=== PATIENT | female | born 1970 | race Caucasian/White ===

== ENCOUNTER 2019-02-06 15:30 | Emergency (ER) | payer BC, OTHER ==
[2019-02-06] MEDS ORDERED: Metoclopramide IV* 5 MG/ML 2 ML VIAL IV ONE (16:18)
[2019-02-06] MEDS ORDERED: NS 0.9% 1000 ML** 1,000 ML IV ONE (16:18)
[2019-02-06] MEDS ORDERED: Morphine 10 MG/ML VIAL (1 ml) IV ONE ×2 (16:18→20:54)
[2019-02-06] MEDS ORDERED: diPHENhydraMINE IV* 50 MG/ML 1 ml VIAL (BENADRYL) IV ONE ×2 (16:20→19:23)
[2019-02-06 16:54] LABS: ABS Basophils 0 10^3/ul (0-0.2); ABS Eosinophils 0.2 10^3/ul (0-0.6); ABS Lymphocytes 1.1 10^3/ul (1.0-4.8); ABS Monocytes 0.5 10^3/ul (0-0.8); ABS Neutrophils 1.7 10^3/ul (1.5-7.7); ABS Nucleated RBC 0 10^3/ul; Eosinophil % 5.3 %; Hematocrit 42 % (33-41); Hemoglobin 14.2 g/dL (12.0-16.0); Lymphocyte % 32.2 %; Mean Corpuscular HGB Conc 34 g/dL (31-36); Mean Corpuscular Hemoglobin 30 pg (27-31); Mean Corpuscular Volume 89 fL (80-97); Mean Platelet Volume 8.1 fL (7.4-10.4); Nucleated Red Blood Cells % 0; Platelet Count 152 10^3/uL (150-450); Red Blood Count 4.71 10^6 /uL (3.70-4.87); Red Cell Distribution Width 14 % (10.5-15); White Blood Count 3.5 10^3/uL (3.5-10.8)
--- NOTE | 2019-02-06 17:01 | ED ---
Syncope/Near Syncope - HPI Summary HPI Summary: Patient complains of syncope 2 in the past 10 days with the last one week ago, constant headache for the past 4 days with associated blurred vision in left eye , nausea and sensitivity to sound. One episode of syncope unwitnessed, patient states she just woke up on the floor. Second episode of syncope was witnessed by , states episode lasted seconds, patient was immediately alert and oriented when she returned to normal mental status. Patient denies any symptoms prior to or following episodes of syncope. Both episodes of syncope occurred when patient change from sitting position to standing position. History of asymptomatic low blood pressure with SBP averaging between 80 and 90. History of orthostatic hypotension. Hypotension has become more symptomatic since gastric sleeve surgery. Patient states she hydrates very religiously. History of CHF with pacemaker/defib. Headache described as constant, /, no relief with Percocet, Tylenol or ibuprofen. Denies unilateral weakness, facial droop, slurred speech, fever, neck stiffness, cough , nasal congestion, sore throat, CP, SOB, V/D, abdominal pain, change in urine, change in BM. Medical history is HTN, hypothyroid, CK D, CHF with pacemaker and defibrillator. No anti-coag. Patient also admits to medication changes 2 weeks ago to include stopping Aldactone and Lasix, decreasing Coreg from 50 minutes twice a day to 25 minutes twice a day and decreasing entresto (ARB) due to weight loss subsequent to gastric sleeve surgery on 01/06/19. - History Of Current Complaint Chief Complaint: EDHeadache Time Seen by Provider: 02/06/19 15:53 Hx Obtained From: Patient, Family/Minister Onset/Duration: Gradual Onset, Lasting Days Timing: Constant Context: Unwitnessed, Witnessed Associated Head Trauma: No Aggravating Factor(s): Position Change Alleviating Factor(s): Spontaneous Resolution Associated Signs And Symptoms: Headache - Risk Factors Cardiac Risk Factors: Hypertension, CHF - Allergies/Home Medications Allergies/Adverse Reactions: Allergies Allergy/AdvReac Type Severity Reaction Status Date / Time SUBHA Inhibitors Allergy Rash Verified 02/06/19 15:36 acetaminophen [From [place]] Allergy Itching Verified 02/06/19 15:36 cefazolin [From [facility]] Allergy Itching Verified 02/06/19 15:36 hydrocodone [From [place]] Allergy Itching Verified 02/06/19 15:36 Iodinated Contrast- Oral and Allergy Hives Verified 02/06/19 15:36 IV Dye latex Allergy Rash Verified 02/06/19 15:36 vancomycin Allergy See Comment Verified 02/06/19 15:36 PMH/Surg Hx/FS Hx/Imm Hx Endocrine/Hematology History: Reports: Hx Thyroid Disease - HYPOTHYROIDISM Cardiovascular History: Reports: Hx Pacemaker/ICD - [employer], Other Cardiovascular Problems/Disorders - NONISCHEMIC DILATED CARDIOMYOPATHY, WITH VTACH GI History: Reports: Hx Ulcer - PEPTIC ULCER, Other GI Disorders - HX GASTRITIS RELATED TO MEDICATIONS, TAKING OMEPRAZOLE History: Reports: Hx Kidney Stones - 2009, Other Problems/Disorders - HX OF INCONTINENCE, BLADDER REPAIR IN 2008 Sensory History: Reports: Hx Contacts or Glasses - GLASSES FOR DISTANCE ONLY Denies: Hx Hearing Aid Opthamlomology History: Reports: Hx Contacts or Glasses - GLASSES FOR DISTANCE ONLY EENT History: Denies: Hx Deafness Neurological History: Denies: Hx Dementia Psychiatric History: Reports: Hx Depression - CONTROL WITH MEDS - Cancer History Hx Chemotherapy: No Hx Radiation Therapy: No - Surgical History Surgery Procedure, Year, and Place: 2008 HYSTERECTOMY WITH BLADDER REPAIR, HARI JONES. 2009 TONSILLECTOMY, [facility] [place]. 2009 RIGHT KIDNEY STONE REMOVAL, LINDA ARGUELLES. 1994 LAPAROSCOPIC CHOLECYSTECTOMY, HARI. 2006 ICD/PACEMAKER PLACEMENT , HARI JONES. 2013 ICD/PACEMAKER GENERATOR CHANGE, HARI. 2015 ICD POCKET AND SCAR REVISION, KATERINE. 2016 cervical fusion, ACHILLES TENDON SURGERY Hx Anesthesia Reactions: No - Immunization History Date of Influenza Vaccine: UTD Infectious Disease History: No Infectious Disease History: Denies: Traveled Outside the [place] in Last 30 Days - Family History Known Family History: Positive: Cardiac Disease - Social History Alcohol Use: Occasionally Hx Substance Use: No Substance Use Type: Reports: None Hx Tobacco Use: No Smoking Status (MU): Never Smoked Tobacco Review of Systems Constitutional: Negative Eyes: Negative ENT: Negative Cardiovascular: Negative Respiratory: Negative Gastrointestinal: Negative Genitourinary: Negative Musculoskeletal: Negative Skin: Negative Positive: Headache, Syncope Psychological: Normal All Other Systems Reviewed And Are Negative: Yes Physical Exam - Summary Physical Exam Summary: Neuro exam normal. Lung sounds clear to auscultation bilaterally. RRR. Abdomen soft nontender. No peripheral edema. Triage Information Reviewed: Yes Vital Signs On Initial Exam: Initial Vitals Temp Pulse Resp BP Pulse Ox 98.1 F 75 14 116/66 96 02/06/19 15:36 02/06/19 15:36 02/06/19 15:36 02/06/19 15:36 02/06/19 15:36 Vital Signs Reviewed: Yes Appearance: Positive: Well-Appearing Skin: Positive: Warm Head/Face: Positive: Normal Head/Face Inspection Eyes: Positive: Normal ENT: Positive: Normal ENT inspection Neck: Positive: Supple Respiratory/Lung Sounds: Positive: Clear to Auscultation Cardiovascular: Positive: Normal Abdomen Description: Positive: Nontender Musculoskeletal: Positive: Normal Neurological: Positive: Normal Psychiatric: Positive: Normal AVPU Assessment: Alert - [place] Coma Scale Best Eye Response: 4 - Spontaneous Best Motor Response: 6 - Obeys Commands Best Verbal Response: 5 - Oriented Coma Scale Total: 15 Diagnostics - Vital Signs Vital Signs Temp Pulse Resp BP Pulse Ox 02/06/19 15:36 98.1 F 75 14 116/66 96 - Laboratory Lab Results: Lab Results 02/06/19 Range/Units 16:45 WBC 3.5 (3.5-10.8) 10^3/uL RBC 4.71 (3.70-4.87) 10^6 /uL Hgb 14.2 (12.0-16.0) g/dL Hct 42 H (33-41) % MCV 89 (80-97) fL MCH 30 (27-31) pg MCHC 34 (31-36) g/dL RDW 14 (10.5-15) % Plt Count 152 (150-450) 10^3/uL MPV 8.1 (7.4-10.4) fL Neut % (Auto) 48.2 % Lymph % (Auto) 32.2 % Loving % (Auto) 13.7 % Eos % (Auto) 5.3 % Baso % (Auto) 0.6 % Absolute Neuts (auto) 1.7 (1.5-7.7) 10^3/ul Absolute Lymphs (auto) 1.1 (1.0-4.8) 10^3/ul Absolute Monos (auto) 0.5 (0-0.8) 10^3/ul Absolute Eos (auto) 0.2 (0-0.6) 10^3/ul Absolute Basos (auto) 0 (0-0.2) 10^3/ul Absolute Nucleated RBC 0 10^3/ul Nucleated RBC % 0 Result Diagrams: 02/06/19 16:45 02/06/19 16:45 Lab Statement: Any lab studies that have been ordered have been reviewed, and results considered in the medical decision making process. Course/Dx Course Of Treatment: Patient complains of syncope 2 in the past 10 days with the last one week ago, constant headache for the past 4 days with associated blurred vision in left eye, nausea and sensitivity to sound. One episode of syncope unwitnessed, patient states she just woke up on the floor. Second episode of syncope was witnessed by , states episode lasted seconds, patient was immediately alert and oriented when she returned to normal mental status. Patient denies any symptoms prior to or following episodes of syncope. Both episodes of syncope occurred when patient change from sitting position to standing position. History of asymptomatic low blood pressure with SBP averaging between 80 and 90. Patient states she hydrates very religiously. History of CHF with pacemaker/defib. Headache described as constant, 6/10, no relief with Percocet, Tylenol or ibuprofen. Denies unilateral weakness, facial droop, slurred speech, fever, neck stiffness, cough, nasal congestion, sore throat, CP, SOB, V/D, abdominal pain, change in urine, change in BM. Medical history is HTN, hypothyroid, CK D, CHF with pacemaker and defibrillator. No anti-coag. Patient also admits to medication changes 2 weeks ago to include stopping Aldactone and Lasix, decreasing Coreg from 50 minutes twice a day to 25 minutes twice a day and decreasing entresto (ARB) due to weight loss subsequent to gastric sleeve surgery on 01/06/19. Physical exam:Neuro exam normal. Lung sounds clear to auscultation bilaterally. RRR. Abdomen soft nontender. No peripheral edema. Vital signs within normal limits. D-dimer 771. Creatinine 1.10 which is a patient baseline CT brain negative. EKG sinus rhythm. CTA chest negative for PE, positive for possible viral pneumonia, subsegmental atelectasis, acute hypersensitivity pneumonitis. Patient will be advised to follow-up with primary care. Headache improved with migraine cocktail and morphine. Patient has syncopal episodes 2, history of recent surgery. D-dimer elevated. CTA ordered. Patient has of allergy to contrast dye oral and IV. Patient was premedicated with 125 mg Solu-Medrol 50 mg Benadryl IV. design technician called to say protocol is to wait 7 hours. Discussed with myself and attending Dr. Jack who agreed 1 hour wait would be sufficient and advised design technician to perform CTA 1 hour from administration of Benadryl and Solu-Medrol. Patient also states that she has had CT with IV contrast on prior occasions shortly after administration of premedication without any issues. Patient had a reaction of hives 5 years ago once without any oral swelling or work of breathing symptoms. No hypotension here in the ED. Patient has appointment with ostomy rn next week. An follow-up appointment for gastric sleeve surgery on 02/19. She has been advised to advise providers of her symptoms. Patient understands and improves with plan. - Diagnoses Provider Diagnoses: Headache, Syncope Discharge - Sign-Out/Discharge Documenting (check all that apply): Patient Departure Patient Received Moderate/Deep Sedation with Procedure: No - Discharge Plan Condition: Stable Disposition: HOME Patient Education Materials: Syncope (ED), Acute Headache (ED) Referrals: Lia Wakefield [Primary Care Provider] - Additional Instructions: Follow-up with primary care, ostomy rn and gastric sleeve surgeon. Return to the ED for any new or worsening symptoms. - Billing Disposition and Condition Condition: STABLE Disposition: Home
[2019-02-06 17:11] LABS: Albumin 4.1 g/dL (3.2-5.2); Albumin/Globulin Ratio 1.5 (1-3); BUN/Creatinine Ratio 14.5 (8-20); C Reactive Protein 10.97 mg/L (<8.01); Calcium 9.6 mg/dL (8.6-10.3); EGFR African American 64.1 (>60); Globulin 2.7 g/dL (2-4); Magnesium 1.9 mg/dL (1.9-2.7); Potassium 3.8 mmol/L (3.5-5.0); Total Bilirubin 0.4 mg/dL (0.2-1.0); Total Protein 6.8 g/dL (6.4-8.9)
[2019-02-06 17:17] LABS: HCG Pregnancy 1.85 mIU/mL
[2019-02-06 17:18] LABS: Urine Appearance Cloudy; Urine Bacteria Absent (Absent); Urine Bilirubin Negative (Negative); Urine Blood 2+ (Negative); Urine Color Yellow; Urine Glucose Negative (Negative); Urine Ketones Negative (Negative); Urine Nitrite Negative (Negative); Urine Protein Negative (Negative); Urine Red Blood Cell 1+(3-5/hpf) (Absent); Urine Specific Gravity 1.015 (1.010-1.030); Urine Urobilinogen Negative (Negative); Urine White Blood Cell Trace(0-5/hpf) (Absent)
[2019-02-06] MEDS ORDERED: methylPREDNISolone 125 MG* 2 ML VIAL IV ONE (19:23)
[2019-02-06] MEDS ORDERED: Iodixanol* (CONTRAST) 320 MG/ML 100 ML SDV IV ONE (21:57)
[2019-02-06] MEDS ORDERED: diPHENhydraMINE PO* 50 MG PO ONE (23:41)
[2019-02-06] MEDS ORDERED: Acetaminophen TAB* 325 MG PO ONE (23:41)
[2019-02-07 00:15] VITALS: BP 107/62
== END 2019-02-07 00:17 | disposition home or self-care (01) ==
LOC: ED 15:30
DX: R55 Syncope and collapse (principal); R51 Headache; F32.9 Major depressive disorder, single episode, unspecified; Z91.040 Latex allergy status; Z91.09 Other allergy status, other than to drugs and biological substances; I11.0 Hypertensive heart disease with heart failure; I50.9 Heart failure, unspecified; Z95.810 Presence of automatic (implantable) cardiac defibrillator; Z79.899 Other long term (current) drug therapy
CPT/HCPCS: 36415; 70450; 71046; 71275; 80053; 81003; 81015; 83735; 83880; 84484; 84702; 85025; 85379; 85610; 86140; 87086; 93005; 96374; 96375; 96376; 99283; A9270-GY; J1200; J2270; J2765; J2930; Q9967